=== PATIENT | male | born 2000 | race African-American/Black ===

== ENCOUNTER 2018-02-26 14:33 | Emergency (ER) | payer MEDICAID, OTHER ==
[~2018-02-26] VITALS: Ht 180.3 cm; Wt 84.0 kg
[2018-02-26] MEDS ORDERED: IBUPROFEN 600MG TABLET PO ONE (16:15)
[2018-02-26 16:20] VITALS: BP 141/88
== END 2018-02-26 16:33 | disposition home or self-care (01) ==
LOC: ER 15:26
DX: S90.01XA Contusion of right ankle, initial encounter (principal); X58.XXXA Exposure to other specified factors, initial encounter; Y93.67 Activity, basketball; Y92.89 Other specified places as the place of occurrence of the external cause; Y99.8 Other external cause status
CPT/HCPCS: 73610; 99284; Z7610